=== PATIENT | male | born 1955 | race Caucasian/White ===

== ENCOUNTER 2017-01-19 14:33 | Observation (INO) | payer OTHER ==
--- NOTE | ~2017-01-19 | EKG ---
PATIENT: SURYA BAE UNIT #: [id number] Ventricular Rate: 82 BPM Atrial Rate: 357 BPM QRS Duration: 100 ms Q-T Interval: 378 ms QTC Calculation(Bezet): 441 ms Calculated R [place]: -7 degrees Calculated T [place]: 18 degrees Diagnosis Line: Atrial fibrillation with premature ventricular or Diagnosis Line: aberrantly conducted complexes Diagnosis Line: Abnormal ECG Diagnosis Line: When compared with ECG of 02-FEB-2014 05:21, Diagnosis Line: Atrial fibrillation has replaced Sinus rhythm Diagnosis Line: Confirmed by LASHAY RICE MD ([id number]) on 01/22/2017 Diagnosis Line: 10:18:39 AM INTERPRETING MD: KRYSTAL SCHWAB
--- NOTE | ~2017-01-19 | CT57 ---
[facility] A Service of [facility] RADIOLOGY TEXT RESULTS PATIENT: SURYA BAE LOCATION: A 331-01 : [birth year] UNIT #: [id number] AGE: [address]: Liam Lozano MD SEX: M ORDER DR: [id number] [address] [address] [id number] E MR#: [id number] #: [id number] NAME: SURYA ABE : 1955 SEX: M STUDY DATE/TIME: 01/19/2017 16:00 UNIT: SED ROOM: STUDY DESCRIPTION: CT Chest Wo Cont Attending Physician: Nohelia Sandra M.D. Ordering Physician: Nohelia Sandra M.D. Primary Care Physician: Primary Care Physician No MEDICAL IMAGING REPORT This report is preliminary unless electronic signature is present. EXAM CT chest without contrast INDICATIONS 40 pound weight loss. Patient underwent a CT scan of the abdomen and pelvis today and on that examination was noted to have multiple hepatic lesions, suspicious for metastatic disease versus primary hepatocellular carcinoma. This exam is requested for surveillance for metastatic disease. TECHNIQUE Axial CT images were obtained from the thoracic inlet through the dome of the diaphragm. No intravenous contrast material was administered. This CT exam was performed with one or more of the following radiation dose reduction techniques: automatic exposure control, adjustment of mA and/or kV according to patient size, and iterative reconstruction. FINDINGS Lungs are clear. No suspicious noncalcified pulmonary nodules or masses are seen. Patient does have some pleural-based scarring at the right lung base. Left lung is clear. Thyroid gland, trachea and esophagus appear unremarkable. There is no pleural or pericardial effusion. Mediastinal lymph nodes do not appear pathologically enlarged. Patient's CT of the abdomen is dictated separately. Please see that report for full description of the findings within the abdomen and pelvis. There is extensive degenerative disease of the spine but I do not see any aggressive osseous abnormalities. Patient does have aneurysmal dilatation of the aortic root measuring up to 4.2 cm descending thoracic aorta however measures within normal size limits. The patient is noted to have bilateral gynecomastia. IMPRESSION 1. No convincing evidence of metastatic disease to the thorax. No STS. [facility] A Service of [facility] RADIOLOGY TEXT RESULTS PATIENT: SURYA BAE LOCATION: C3A 331-01 : 57 UNIT #: [id number] AGE: [address]: Liam Lozano MD SEX: M ORDER DR: acute abnormalities are identified within the thorax. 2. Aneurysmal dilatation of the aortic root measuring up to 4.2 cm. Dictated by... Kinjal Baez M.D. THIS IS AN ELECTRONICALLY VERIFIED REPORT Kinjal Baez M.D. at 01/20/2017 4:47 PM AFF/to TD: 01/19/2017 21:47 JOB #: [id number] MEDICAL IMAGING REPORT Page 1 of 1
--- NOTE | ~2017-01-19 | CT71 ---
[facility] A Service [facility] RADIOLOGY TEXT RESULTS PATIENT: SURYA BAE LOCATION: C3A 331- : [birth year] UNIT #: [id number] AGE: [address]: JOSE BARTH MD SEX: M ORDER DR: [id number] [place] [address] [id number] E MR#: [id number] Acc #: [id number] NAME: SURYA BAE : 1955 SEX: M STUDY DATE/TIME: 01/19/2017 15:57 UNIT: SED ROOM: STUDY DESCRIPTION: CT Head Wo Contrast Attending Physician: Nohelia Sandra M.D. Ordering Physician: Nohelia Sandra M.D. Primary Care Physician: Primary Care Physician No MEDICAL IMAGING REPORT This report is preliminary unless electronic signature is present. EXAM CT head, noncontrast, 01/19/2017 HISTORY 61-year-old male in the ED complaining of 2-month history of vomiting and dizziness, worsening over the last 2 days. Weight loss. History of liver cancer status post previous chemoembolization procedures. TECHNIQUE CT examination of the head was performed without IV contrast. This CT exam was performed with one or more of the following radiation dose reduction techniques: automatic exposure control, adjustment of mA and/or kV according to patient size, and iterative reconstruction. COMPARISON CT head, 06/17/2010 FINDINGS No acute intracranial abnormality is identified. Mild generalized cerebral cortical atrophy is noted, but the exam is otherwise negative. No evidence of intracranial hemorrhage, mass, mass effect, acute cerebral edema or hydrocephalus. IMPRESSION No acute intracranial abnormality. Dictated by... Jame Ponce M.D. [facility] A Service [facility] RADIOLOGY TEXT RESULTS PATIENT: SURYA BAE LOCATION: C3A 331- : [birth year] UNIT #: [id number] AGE: [address]: JOSE BARTH MD SEX: M ORDER DR: THIS IS AN ELECTRONICALLY VERIFIED REPORT Jame Ponce M.D. at 01/19/2017 10:37 PM Frandy TD: 01/19/2017 22:05 JOB #: [id number] MEDICAL IMAGING REPORT Page 1 of 1
--- NOTE | ~2017-01-19 | CO ---
Unit #: [id number] #: [id number] Patient: SURYA BAE [id number] [address] [address] [id number] I MR#: [id number] NAME: SURYA BAE ROOM: 331 Age: 61 Sex: M Admission Date: 01/20/2017 : 1955 Attending Physician: Liam Lozano M.D. Requesting Physician: Samantha Lubin M.D. Consultation Date: 01/20/2017 CONSULTATION REPORT PRIMARY CARE PHYSICIAN Dr. Surya Kenny REASON FOR CONSULTATION Nausea, anorexia, weight loss and early satiety. This is an addendum to consult already dictated by Dr. Talia Lan's nurse practitioner. The patient apparently was seen at [facility] for recurrent hepatocellular cancer. He initially had chemoembolization that did not help. Subsequently had radiofrequency ablation that seemingly helped. For the last two to three months he has lost substantial weight and has been anorexic. He also has fullness of his stomach on minimal intake. The lab evaluation suggestions mildly elevated and an albumin of 2.2. His alpha-fetoprotein is pending and the imaging studies suggests the patient has 3 densities within the liver that is most likely consistent with underlying infiltrative mass or hepatocellular cancer. The patient also has varices within the right side of the abdomen. CLINICAL IMPRESSION It is quite unlikely the patient would be suitable for transplantation based upon his comorbid cardiovascular disease and the lesion seen on the recent CAT scan. An upper endoscopy is warranted to essentially look for any gastric outlet obstruction or structural etiology such as ulcer. The above findings will also need to be communicated to [facility]. Thank you for asking me to see this pleasant gentleman. Dictated by... Thom Armando/ariel TD: 01/21/2017 21:35 JOB #: [id number] Unit #: [id number] #: [id number] Patient: SURYA BAE CONSULTATION REPORT Page 1 of 1 X Medhat Melgar MD X CONSULTATION REPORT
--- NOTE | ~2017-01-19 | CT4 ---
[facility] A Service of [facility] RADIOLOGY TEXT RESULTS PATIENT: SURYA BAE LOCATION: C3A 331-01 : 57 UNIT #: [id number] AGE: [address]: Liam Lozano MD SEX: M ORDER DR: [id number] [address] [address] [id number] E MR#: [id number] #: [id number] NAME: SURYA BAE : 1955 SEX: M STUDY DATE/TIME: 01/19/2017 15:51 UNIT: SED ROOM: STUDY DESCRIPTION: CT Abd and Pelv Wo Cont Attending Physician: Nohelia Sandra M.D. Ordering Physician: Nohelia Sandra M.D. Primary Care Physician: Primary Care Physician No MEDICAL IMAGING REPORT This report is preliminary unless electronic signature is present. EXAM CT abdomen and pelvis without contrast INDICATIONS Nausea and vomiting for 2 months. Worse the past couple days. TECHNIQUE CT of the abdomen and pelvis was performed without contrast. Coronal and sagittal reformatted images were obtained. This CT exam was performed with one or more of the following radiation dose reduction techniques: automatic exposure control, adjustment of mA and/or kV according to patient size, and iterative reconstruction. COMPARISON 08/28/2014 FINDINGS There is mild curvilinear scarring or atelectasis within the right base. There is a cirrhotic morphology of the liver. There are 3 ill-defined hypodensities within the liver on image 21 which are very poorly defined. There is high attenuation material within the gallbladder which may represent sludge. The spleen is mildly enlarged. There is a small cyst in the left kidney. There is a small cyst in the right kidney. The adrenal glands are unremarkable. Pancreas is unremarkable. Pelvis: The colon is unremarkable. The appendix is normal. There is no free fluid. Small fat-containing right inguinal hernia. There are multiple serpiginous densities along the IVC to the right extending into the pelvis which have the appearance of varices, however this is indeterminate without contrast. The bone windows demonstrate degenerative changes of the lumbar spine. IMPRESSION [facility] A Service of [facility] RADIOLOGY TEXT RESULTS PATIENT: SURYA BAE LOCATION: C3A 331-01 : [birth year] UNIT #: [id number] AGE: [address]: Liam Lozano MD SEX: M ORDER DR: 1. The liver is small and nodular suggestive of cirrhosis. 2. There are multiple poorly defined hypodensities in the right lobe of the liver which are concerning for masses or 1 large infiltrative mass. Further evaluation is recommended with a contrast-enhanced study. According to the history sheet the patient has a GFR of 37.5. Therefore further evaluation with MRI with and without contrast of the abdomen is recommended to evaluate the findings in the liver. Again this is concerning for multiple masses or 1 large infiltrative mass. 3. There is probable sludge in the gallbladder. 4. Bilateral renal cysts. 5. Suspected large varices within the right side of the abdomen. Dictated by... Dante Sweet M.D. THIS IS AN ELECTRONICALLY VERIFIED REPORT Dante Sweet M.D. at 01/21/2017 7:24 AM ARS/marvin TD: 01/19/2017 21:43 JOB #: [id number] MEDICAL IMAGING REPORT Page 1 of 1
--- NOTE | ~2017-01-19 | A ---
[facility] Nutrition Therapy DATE: 01/20/17 Patient: SURYA BAE Physician: SUNG Address: [address] [place] [address] Room/Bed: [address] [place] [address], Zip: [place] [address] Admit Date: 01/20/17 Date of : [birth year] Height: 6 2 Weight: 309 140.6 NUTRITIONAL ASSESSMENT: REASON: 3 points nutrition screen risk RE: 20# weight loss 61 yo male admitted for dizziness, n/v, early satiety PMH: Hepatitis C, cirrhosis, portal HTN, DM, HTN, PUD, Afib, CHF Anthropometrics: Ht: 6'2" Wt: 140.6 kg BMI: 39.8 Labs: BUN 31 Creat 1.6 Alb 2.4 AST 70 ALT 45 Accuchecks 132 GFR 46.2 Meds: Novolog, D5%, zofran I/O & Bowel function: 1440/400, last 01/17 Skin Integrity: Scar LUE Edema: none noted Estimated Nutrition Needs: Increased d/t cirrhosis Diet: Full liquid diet Assessment: Chart reviewed, events noted. RD spoke with the pt at bedside, who was drowsy, tired. Pt reported ~40# weight loss in the past 4-5 months due to n/v causing early satiety and decreaesd appetite. Pt is scheduled for EGD tomorrow, currently ordered a full liquid diet (will be NPO at midnight). RD suggested the pt consume smaller, more frequent meals and increase his protein intake. Pt agreed, and states that he was consuming smaller, more frequent meals; however, he was not eating enough protein. RD will follow up to determine appropriate diet/ diet education following EGD. Pt agreeable to Glucerna TID while on a full liquid diet. Dx: Unintentional weight loss RT GI issues, decreased appetite, early satiety AEB pt reported ~40# weight loss in 4-5 months, n/v. Intervention: 1. Advance to 2 gram Na+/ CC/ 6 small meals diet once feasible 2. Glucerna TID Monitoring, Evaluation and Goals: 1. Oral intake; consume >50-75% of meals and supplements 2. Improve labs; glucose, BUN, creat, AST, ALT, GFR [facility] Nutrition Therapy DATE: 01/20/17 Patient: SURYA BAE Physician: SUNG Address: [address] [place] [address] Room/Bed: [address] [place] [address], Zip: [place] [address] Admit Date: 01/20/17 Date of : [birth year] Height: 6 2 Weight: 309 140.6 3. Weight; prevent further unintentional weight loss 4. GI; promote regular GI function Recommendations: 1. Continue full liquid diet as tolerated + Glucerna TID for supplemental nutrition. 2. Once medically feasible, advance the pt to a 2 gram Na+/ CC/ 6 small meals diet due to his PMH. Changes may need to be made to recommendations based on EGD results. 3. Snack in between meals or Glucerna TID once diet advances. Pt is at moderate nutritional risk. RD will follow up per protocol. Respectfully, JORGE A PANTOJA RD, LD Food and Nutritional Services [facility] cc: client file
--- NOTE | ~2017-01-19 | CO ---
Unit #: [id number] #: [id number] Patient: SURYA BAE [id number] [place], [place] [address] [id number] I MR#: [id number] NAME: SURYA BAE ROOM: 331 Age: 61 Sex: M Admission Date: 01/20/2017 : 1955 Attending Physician: Liam Lozano M.D. Primary Care Physician: No Primary Care Physician Consultation Date: 01/20/2017 CONSULTATION REPORT PRIMARY CARE PHYSICIAN Dr. Murali Kenny with [facility]. REASON FOR CONSULT Nausea, vomiting, and early satiety. HISTORY OF PRESENT ILLNESS The patient is a very pleasant 61-year-old male with past medical history significant for hepatitis C, cirrhosis, portal hypertension with varices, atrial fibrillation, CHF, and hepatocellular cancer. Patient has presented with progressively worsening nausea, vomiting, and early satiety. He also reports a 40-pound weight loss over the past two or three months. Patient had been doing well up until two to three months ago when he started having postprandial nausea, vomiting, early satiety, and intermittent epigastric pain. Symptoms had gotten worse over the past two to three days. Patient initially presented to [facility] Emergency Department and subsequently transferred to [facility] for further evaluation. Patient has been going to [facility] for treatment of hepatocellular cancer. He has had several chemoembolization and ablation therapy. Recent MRI in December was reportedly negative for recurrence of hepatocellular cancer. Patient is also currently on liver transplant list at . In the emergency room, abdominal CT was done and it showed multiple poorly defined hypodensities in the right lobe of the liver concerning for masses. Patient at the moment is comfortable. Nausea and vomiting has improved. PAST MEDICAL HISTORY 1. Hepatitis C. Patient was unsuccessfully treated with antiviral therapy in 2004. 2. Cirrhosis with portal hypertension. 3. Hepatocellular cancer, status post chemoembolization and ablation. 4. Peptic ulcer disease. 5. Atrial fibrillation. 6. Congestive heart failure. 7. Hypertension. 8. Diabetes. 9. Skin cancer. PAST SURGICAL HISTORY 1. Excision of skin cancer. 2. EGD and colonoscopy about 10 years ago. ALLERGIES No known drug allergies. Unit #: [id number] #: [id number] Patient: SURYA BAE HOME MEDICATIONS 1. Zofran. 2. Lopressor. 3. Vitamin D. 4. Cardizem. 5. Xanax. 6. Lisinopril. 7. Potassium. 8. Metformin. 9. Lasix. 10. Aldactone. 11. Eliquis. 12. Oxycodone. 13. Singulair. FAMILY HISTORY None for colon, pancreatic cancer or liver disease. SOCIAL HISTORY The patient lives with his . He is a lifelong nonsmoker. He denies alcohol and illicit drug use. REVIEW OF SYSTEMS Detailed review of system notable for weight loss, nausea, vomiting, early satiety, epigastric pain, chronic constipation. There is no history of fever or chills. No headaches, seizures, syncope. No history of cough, hematemesis. No gastrointestinal blood loss in the form of hematemesis, melena, or hematochezia. The rest of the review of organ system is unremarkable. PHYSICAL EXAMINATION GENERAL: Patient is awake, alert, and oriented. Comfortable in no acute distress. VITAL SIGNS: Stable with temperature 98.2, blood pressure 109/59, heart rate 75, respirations 20. HEENT: Patient does have moderate pallor. No sclerae icterus. No lymphadenopathy. CARDIOVASCULAR: Regular rate and rhythm. CHEST: Clear to auscultation bilaterally. ABDOMEN: Soft, nontender. Liver and spleen not palpable. Bowel sounds are normal. DIAGNOSTIC STUDIES LABORATORY: A complete metabolic panel notable for BUN 31, creatinine 1.6. Albumin 2.4, total bilirubin 3.5, AST 70, ALT 45, alkaline phosphatase 150. INR 1.1. WBC 9.6, hemoglobin 12.4, platelets 111,000. IMAGING: CT of abdomen and pelvis notable for multiple poorly-defined hypodensities in the right lobe of the liver which are concerning for masses or one large infiltrative mass. Suspected large varices within the right side of the abdomen. Head CT showed no acute intracranial abnormality. Chest CT showed no convincing evidence of metastatic disease. There is an aneurysmal dilation of the aortic root measuring up to 4.2 cm. Unit #: [id number] #: [id number] Patient: SURYA BAE CLINICAL IMPRESSION AND PLAN Patient with cirrhosis secondary to hepatitis C and hepatocellular cancer here with nausea, vomiting, early satiety, and significant weight loss. Differential diagnosis includes peptic ulcers, gastric outlet obstruction, gastroparesis, as well as, malignancy. Will recommend an upper GI endoscopy for definite diagnosis. Patient and plan of care discussed in detail with Dr. Melgar. Further recommendations to follow. Thank you very much for asking us to see this patient. We appreciate the consult. Dictated byLaureen Ty APRN for Thom Armando TD: 01/20/2017 16:33 JOB #: [id number] CONSULTATION REPORT Page 1 of 1 X X CONSULTATION REPORT
--- NOTE | ~2017-01-19 | DS ---
Unit #: [id number] #: [id number] Patient: SURYA BAE [id number] [address] [address] [id number] I MR#: [id number] NAME: SURYA BAE ROOM: 331 Age: 61 Sex: M Admission Date: 01/20/2017 : 1955 Discharge Date: 01/21/2017 Attending Physician: Liam Lozano M.D. 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 CHIEF COMPLAINT Nausea, vomiting, early satiety. FURTHER DIAGNOSES 1. History of C associated with cirrhosis. 2. History of hepatocellular carcinoma. 3. Peptic ulcer disease. 4. Atrial fibrillation. 5. Congestive heart failure. 6. Hypertension. 7. History of skin cancer, status post excision. HISTORY OF PRESENT ILLNESS The patient is a 61-year-old man with a past medical history of cirrhosis, Hep-C, hepatocellular carcinoma, who was treated with chemoembolization in the past, presented from [facility] emergency room with a chief complaint of nausea, vomiting, lightheadedness. HOSPITAL COURSE He was given IV fluids, Phenergan and slowly his nausea and vomiting improved. He was seen by Dr. Melgar and he did have an EGD. He was doing clinically better and he was discharged on the . We instructed him to hold his metformin at the time of discharge and the rest of the home medications were continued. He was instructed to follow with his primary care in one to two weeks. Dictated by... Liam Lozano M.D. BALJEET/kimberly TD: 01/27/2017 11:35 Unit #: [id number] #: [id number] Patient: SURYA BAE JOB #: [id number] DISCHARGE SUMMARY Page 1 of 1 X X DISCHARGE SUMMARY
--- NOTE | ~2017-01-19 | HP ---
Unit #: [id number] #: [id number] Patient: SURYA BAE [id number] [address] [address] [id number] I MR#: [id number] NAME: SURYA BAE ROOM: 331 Age: 61 Sex: M Admission Date: 01/19/2017 : 1955 Attending Physician: Samantha Lubin M.D. Primary Care Physician: No Primary Care Physician HISTORY AND PHYSICAL CHIEF COMPLAINT Nausea, vomiting, early satiety. HISTORY This pleasant 61-year-old male with hepatitis C and associated cirrhosis treated for hepatocellular cancer, was transferred from [facility] emergency department for nausea, vomiting, lightheadedness. The patient stated that two months ago he began to experience early satiety associated with nonbloody post prandial nausea and vomiting. He notes a 40 pounds weight loss over the past four to five months. Two days ago experienced increasing nausea, vomiting, early satiety. Yesterday became lightheaded while mowing. Went to [facility] emergency department where his vital signs were stable. However, Labs revealed acute kidney injury. He was treated with IV fluids, given 25 mg of [place] Phenergan and sent to this facility for further treatment. He does have a history of hepatitis C, which did not respond to antiviral therapy in 2004. Developed cirrhosis with portal hypertension. Was diagnosed with hepatocellular cancer and underwent chemoembolization and afterwards ablation with remission of his hepatocellular cancer. States that his last MRI scan two to three months ago was negative for recurrence at [facility]. Plans are for transplant at [facility] in the future. PAST MEDICAL HISTORY 1. Hepatitis C. Patient was unsuccessfully treated with antiviral therapy in 2004. Does have a history of cirrhosis with portal hypertension and varices. Later developed hepatocellular cancer, status post chemoembolization and later ablation. His ablation was performed at last year. He was on the transplant list currently. Last MRI scan was performed October or November of this past year and patient was told that he was in remission from his hepatocellular cancer. Will obtain records. 2. Peptic ulcer disease with history of duodenal ulcer in the past. 3. Atrial fibrillation and congestive heart failure. 4. Cardiac catheterization 2009 showed mild nonobstructive coronary artery disease. Last echo 04/2012 at this facility, ejection fraction 50% to 55% with mild MR, mild TR. Patient is anticoagulated with Eliquis. 5. Hypertension. 6. AODM. 7. Skin cancer, status post excision. ALLERGIES No known drug allergies. Unit #: [id number] #: [id number] Patient: SURYA BAE HOME MEDICATIONS Zofran p.r.n.; Lopressor uncertain dose; vitamin D; Cardizem CD 180 mg daily; Xanax 1 mg t.i.d. p.r.n.; lisinopril 20 mg daily; potassium 20 mEq daily; metformin 500 mg b.i.d.; Lasix 60 mg daily; Aldactone 100 mg daily; Eliquis 5 mg b.i.d.; oxycodone 15 mg q.4 hours as needed; Singulair 10 mg daily. FAMILY HISTORY Negative for liver disease. SOCIAL HISTORY The patient lives with his . He stopped drinking alcohol in 2003. He is a lifelong nonsmoker. REVIEW OF SYSTEMS Notable for weight loss, early satiety, nausea, vomiting, lightheadedness, hepatitis C, hepatocellular cancer, cirrhosis, portal hypertension, atrial fibrillation, peptic ulcer disease, hypertension, AODM, above mentioned procedures, skin cancer. All other systems were reviewed and otherwise negative. PHYSICAL EXAMINATION GENERAL: Very pleasant, 61-year-old male who is moderately obese, in no acute distress. CURRENT VITAL SIGNS: Temperature 98.4, pulse 72, respiration 16, blood pressure 121/57, O2 saturation is 100%, weight is 309 pounds with a BMI of 39. HEENT: Eyes - PERRLA, extraocular muscles are intact, mild scleral icterus. Pharynx is benign. NECK: Supple without adenopathy or thyromegaly. CHEST: Clear. CARDIAC: Normal S1 and S2 without murmur. ABDOMEN: Bowel sounds are present. No hepatosplenomegaly, tenderness or masses. EXTREMITIES: Minimal edema. Pedal pulses are present. No ulcers on the feet. NEUROLOGIC: Patient is awake, alert and oriented. Cranial nerves are intact. Equal strength throughout. DIAGNOSTIC STUDIES LABORATORY STUDIES: Hematocrit 38.7, white blood count 11, platelet count is 130. SMA 12 - BUN 33, creatinine 1.9, up from a BUN of 14, creatinine of 0.7 two years ago, sodium 133, albumin 2.9, bilirubin 3.6, AST 80, ALT 48, alk phos 172, lipase 76. Cardiac markers are negative. IMAGING STUDIES: CT scan of the chest - aneurysmal dilatation of the aortic root, 4.2 cm. There was a not made by Dr. Mosquera in the past of aortic root dilatation 02/[address] scan of the head - no acute disease. CT scan of the abdomen and pelvis - cirrhosis, multiple poorly defined hypodensities in the right lobe of the liver, which are concerning for masses or one large infiltrate of mass. Probable sludge in the gallbladder. Bilateral renal cyst, suspected large varices within the right side of the abdomen. Unit #: [id number] #: [id number] Patient: SURYA BAE CARDIOLOGY STUDIES: EKG - atrial fibrillation with one PVC, rate 82. ASSESSMENT 1. Nausea and vomiting with early satiety associated with weight loss. 2. Hepatocellular cancer in this man with hepatitis C and portal hypertension with cirrhosis. Patient is status post chemoembolization and ablation. States that he is in remission. Plans are for liver transplant in the future at [facility]. Last MRI scan was performed two to three months ago. Had an abnormal CT scan yesterday after [facility] ER. 3. Atrial fibrillation currently rate controlled on Eliquis. 4. Hepatitis C with cirrhosis and portal hypertension on transplant list. 5. History of peptic ulcer disease. 6. AODM. 7. Hypertension. 8. Acute kidney injury. PLANS 1. IV FLUIDS, antiemetics. 2. GI consultation. 3. SCDs for DVT prophylaxis. 4. Hold Eliquis pending GI evaluation. 5. Obtain records from [facility] and last MRI scan. 6. Hold Glucophage, diuretics, and lisinopril for now. 7. Repeat labs in the morning. Dictated by Lata Quevedo M.D. AML/ts TD: 01/20/2017 05:45 JOB #: [id number] HISTORY AND PHYSICAL Page 1 of 1 X Lata Quevedo MD HISTORY AND PHYSICAL
--- NOTE | ~2017-01-19 | OR ---
Unit #: [id number] #: [id number] Patient: SURYA BAE [id number] [address] [address] [id number] I MR#: [id number] NAME: SURYA BAE ROOM: 331 Date of Procedure: 01/21/2017 Admission Date: 01/20/2017 Surgeon: Medhat Melgar M.D. : 1955 Attending Physician: Liam Lozano M.D. OPERATIVE REPORT REQUESTING PHYSICIAN Dr. Samantha Lubin. PREOPERATIVE DIAGNOSES Nausea, anorexia, weight loss, and early satiety. PROCEDURE PERFORMED Upper gastrointestinal endoscopy. POSTOPERATIVE DIAGNOSIS Completely normal examination up to third part of duodenum. RECOMMENDATIONS Supportive and symptomatic treatment is in order. SEDATION USED MAC. DESCRIPTION OF PROCEDURE Following detailed explanation of the potential risks and complications of an upper endoscopy, namely perforation, bleeding, and complications related to sedation, the patient was brought to GI lab and laid in the left lateral decubitus position. Lubricated tip of the Olympus video upper endoscope was passed through the bite block into the proximal esophagus under direct vision. The entire esophageal mucosa was examined and appeared normal. Z-line was nicely demarcated, there being no esophagitis or hiatus hernia. The scope was then advanced into the gastric cavity and the latter was insufflated. Mucosa of the fundus, body, and antrum was examined and appeared unremarkable. Pylorus was intubated with visualization of the normal duodenal bulb and second and third part of the duodenum. Upon withdrawal and retroflexion, incisura, cardia, and greater curve was examined and no additional findings were noted. The scope was then withdrawn in the distal esophagus. Entire esophageal mucosa was examined all the way up to pharynx. No additional findings were noted. The patient tolerated the procedure without any postprocedure complications. Dictated by... Medhat Melgar M.D. Unit #: [id number] #: [id number] Patient: SRUYA BAE SEMAJ/jg TD: 02/07/2017 11:04 JOB #: [id number] OPERATIVE REPORT Page 1 of 1 X Medhat Melgar MD PROCEDURE OPERATIVE NOTE
[~2017-01-19 14:33] MED LIST: ALDACTONE; ALDACTONE PO; ALDACTONE25 MG PO; AMOXIL400 MG/52 PO; BUMEX PO; BYSTOLIC2.5 MG PO; CELEXA PO; CIPRO PO; CLONIDINE HCL0.1 MG PO; DICLOFENAC; FLEXERIL10 MG PO; FLONASE 0.05% N16 G1; FLONASE16 GM; GLUCOPHAGE500 MG PO; KCL PO; LACTULOSE10 G/15 M1 PO; LACTULOSE10 G/15 ML PO; LASIX; LASIX PO; LEVAQUIN750 MG PO; LEVOFLOXACIN500 MG PO; LISINOPRIL PO; METFORMIN HCL500 M1 PO; METFORMIN PO; PYRIDIUM PO; TENORMIN50 MG PO; ZINC SULFATE PO; ZOFRAN ODT4 MG/UDTAB PO; ZOFRAN PO
[2017-01-19] MEDS ORDERED: ZOFRAN PO (14:44)
[2017-01-19] MEDS ORDERED: LOPRESSOR (14:44)
[2017-01-19] MEDS ORDERED: VITAMIN D1000 UNI1 PO (14:45)
[2017-01-19] MEDS ORDERED: CARDIZEM CD180 MG PO (14:46)
[2017-01-19] MEDS ORDERED: ELIQUIS5 MG PO (14:46)
[2017-01-19] MEDS ORDERED: SINGULAIR PO (14:46)
[2017-01-19] MEDS ORDERED: ALPRAZOLAM PO (14:46)
[2017-01-19] MEDS ORDERED: OXYCODONE HCL15 MG PO (14:46)
[2017-01-19 15:12] LABS: BASOPHIL# 0.1 X10e3 (0-0.3); BASOPHIL% 0.7 % (0-2.5); DIFF IND NO; EOSINOPHIL# 0.3 X10e3 (0-0.7); EOSINOPHIL% 2.4 % (0.0-7.0); HEMATOCRIT 38.7 % (38.0-50.0); HEMOGLOBIN 13.8 gm/dL (13.0-16.0); LYMPHOCYTE# 1.5 X10e3 (1.0-3.5); LYMPHOCYTE% 13.9 % (17.0-45.0); MEAN CELL VOLUME 96.4 FL (83-96); MEAN CORPUSCULAR HEMOGLOBIN 34.5 PG (28-34); MEAN CORPUSCULAR HGB CONC 35.8 g/dL (30-36); MEAN PLATELET VOLUME 8.3 FL (6.5-11.5); MONOCYTE# 1.6 X10e3 (0-1.0); MONOCYTE% 14.1 % (3.0-12.0); NEUTROPHIL# 7.7 X10e3 (1.5-7.1); NEUTROPHIL% 68.9 % (40-75); PLATELET COUNT 130 X10e3 (140-420); RED BLOOD COUNT 4.01 X10e (3.90-5.60); RED CELL DISTRIBUTION WIDTH 14.7 % (11.0-15.5); WHITE BLOOD COUNT 11.1 X10e3 (4.0-10.5)
[2017-01-19 15:29] LABS: POC - CKMB <1.0 ng/mL (0.0-7.9); POC - TROPONIN <0.05 ng/mL (<=0.05)
[2017-01-19 15:32] LABS: ALBUMIN SERUM 2.9 g/dL (3.5-5.0); BILIRUBIN, DIRECT 1.6 mg/dL (0.0-0.2); BILIRUBIN,TOTAL 3.6 mg/dL (0.2-2.0); BUN/CREATININE RATIO 17.36; CALCIUM SERUM 9.1 mg/dL (8.4-10.2); CREATININE SERUM 1.9 mg/dL (0.6-1.4); GLOM FILT RATE Estimated 37.5 mL/min (>60); PROTEIN TOTAL SERUM 7.3 g/dL (6.0-8.3)
[2017-01-20 08:32] LABS: HEMATOCRIT 35.9 % (38.0-50.0); HEMOGLOBIN 12.4 gm/dL (13.0-16.0); MEAN CELL VOLUME 98.4 FL (83-96); MEAN CORPUSCULAR HGB CONC 34.6 g/dL (30-36); MEAN PLATELET VOLUME 8.1 FL (6.5-11.5); RED BLOOD COUNT 3.65 X10e (3.90-5.60); RED CELL DISTRIBUTION WIDTH 14.6 % (11.0-15.5); WHITE BLOOD COUNT 9.6 X10e3 (4.0-10.5)
[2017-01-20 09:00] LABS: INR 1.1; PARTIAL THROMBOPLASTIN TIME 31.7 SECONDS (23.5-31.3); PROTHROMBIN TIME (PATIENT) 12.1 SECONDS (9.6-11.5)
[2017-01-20 10:04] LABS: ALBUMIN SERUM 2.4 g/dL (3.5-5.0); BILIRUBIN,TOTAL 3.5 mg/dL (0.2-2.0); BUN/CREATININE RATIO 19.37; CALCIUM SERUM 8.5 mg/dL (8.4-10.2); CREATININE SERUM 1.6 mg/dL (0.6-1.4); GLOM FILT RATE Estimated 46.2 mL/min (>60); POTASSIUM 4.9 mmol/L (3.5-5.1)
[2017-01-21 04:58] LABS: HEMOGLOBIN 11.3 gm/dL (13.0-16.0); MEAN CELL VOLUME 97.1 FL (83-96); MEAN CORPUSCULAR HEMOGLOBIN 34.1 PG (28-34); MEAN CORPUSCULAR HGB CONC 35.1 g/dL (30-36); MEAN PLATELET VOLUME 7.9 FL (6.5-11.5); RED BLOOD COUNT 3.3 X10e (3.90-5.60); RED CELL DISTRIBUTION WIDTH 14.6 % (11.0-15.5)
[2017-01-21 05:44] LABS: ALBUMIN SERUM 2.2 g/dL (3.5-5.0); BILIRUBIN,TOTAL 3.1 mg/dL (0.2-2.0); BUN/CREATININE RATIO 18.46; CREATININE SERUM 1.3 mg/dL (0.6-1.4); GLOM FILT RATE Estimated 59.3 mL/min (>60); MAGNESIUM 1.7 mg/dL (1.6-3.0); PROTEIN TOTAL SERUM 5.4 g/dL (6.0-8.3)
[2017-01-21 05:49] LABS: POTASSIUM 5.5 mmol/L (3.5-5.1)
== END 2017-01-21 18:49 | disposition home or self-care (01) ==
LOC: SED 14:33 → CEDOF 18:02 → C3A PCU 20:45 → CEDOF 20:45 → C3A PCU 01-20 08:02 → CEDOF 01-20 13:45 → C3A PCU 01-21 18:49
PROVIDERS: Emergency Medicine; Internal Medicine
DX: R11.2 Nausea with vomiting, unspecified (principal); R68.81 Early satiety; R63.4 Abnormal weight loss; B19.20 Unspecified viral hepatitis C without hepatic coma; K76.6 Portal hypertension; K74.69 Other cirrhosis of liver; Z85.05 Personal history of malignant neoplasm of liver; K27.9 Peptic ulcer, site unspecified, unspecified as acute or chronic, without hemorrhage or perforation; I48.91 Unspecified atrial fibrillation; Z79.01 Long term (current) use of anticoagulants; I11.0 Hypertensive heart disease with heart failure; I50.9 Heart failure, unspecified; N17.9 Acute kidney failure, unspecified; E11.9 Type 2 diabetes mellitus without complications; Z85.828 Personal history of other malignant neoplasm of skin; I71.2 Thoracic aortic aneurysm, without rupture; N28.1 Cyst of kidney, acquired
CPT/HCPCS: 36415; 70450; 71250; 74176; 80048; 80053; 80076; 82553; 82947; 83690; 83735; 84484; 85025; 85027; 85610; 85730; 93005; 96360; 96361; 96374; 96375; 99285; G0378; J2405; J3475